=== PATIENT | female | born 1975 | race Caucasian/White ===

== ENCOUNTER 2017-08-29 07:25 | Outpatient (CLI) | payer OTHER ==
[~2017-08-29] VITALS: Ht 152.4 cm; Wt 76.2 kg
[~2017-08-29 07:25] MED LIST: CEFUROXIME500 MG PO; FLONASE16 GM NASAL; ZANTAC300 MG PO; ZYRTEC10 MG PO
== END 2017-08-29 07:45 | disposition home or self-care (01) ==
LOC: OFIC 805 07:25
DX: J37.0 Chronic laryngitis (principal); J31.0 Chronic rhinitis; R05 Cough

== ENCOUNTER 2017-10-11 08:08 | Outpatient (CLI) | payer OTHER | END 2017-10-11 16:27 | disposition home or self-care (01) | LOC: SONOGRAMA 08:08 | DX: E04.2 Nontoxic multinodular goiter (principal) ==

== ENCOUNTER 2017-11-14 07:54 | Outpatient (CLI) | payer OTHER ==
[~2017-11-14] VITALS: Ht 152.4 cm; Wt 76.2 kg
[2017-11-14] MEDS ORDERED: ZANTAC300 MG PO (09:17)
[2017-11-14] MEDS ORDERED: ZYRTEC10 MG PO (09:17)
[2017-11-14] MEDS ORDERED: FLONASE16 GM NASAL (09:17)
== END 2017-11-14 08:15 | disposition home or self-care (01) ==
LOC: OFIC 805 07:54
DX: J32.8 Other chronic sinusitis (principal); J37.0 Chronic laryngitis; J31.0 Chronic rhinitis; E04.2 Nontoxic multinodular goiter

== ENCOUNTER 2024-03-21 05:19 | Day surgery (SDC) | payer OTHER ==
[2024-03-21] MEDS ORDERED: CEFAZOLIN SODIUM 1,000 MG VIAL ONE (07:47)
[2024-03-21] MEDS ORDERED: POVIDONE-IODINE 118 ML BOTT TOP ONE (09:45)
[2024-03-21] MEDS ORDERED: MORPHINE SULFATE 2 MG/ML CARTRIDGE IV ONE (10:50)
== END 2024-03-21 16:50 | disposition home or self-care (01) ==
LOC: CIR.AMB 05:19
PROVIDERS: ATTEND Specialist
DX: N92.1 Excessive and frequent menstruation with irregular cycle (principal); J45.909 Unspecified asthma, uncomplicated; H52.209 Unspecified astigmatism, unspecified eye

== ENCOUNTER 2025-04-27 15:41 | Emergency (ER) | payer OTHER ==
[~2025-04-27] VITALS: Ht 170.2 cm; Wt 90.7 kg
[2025-04-27] MEDS ORDERED: DEXAMETHASONE SODIUM PHOSPHATE 4 MG/ML VIAL ONE (18:10)
[2025-04-27] MEDS ORDERED: ORPHENADRINE CITRATE 30 MG/ML AMPUL ONE (18:10)
[2025-04-27] MEDS ORDERED: KETOROLAC TROMETHAMINE 30 MG VIAL ONE (18:10)
[2025-04-27] MEDS ORDERED: DEXAMETHASONE SODIUM PHOSPHATE 4 MG/ML VIAL IM ONE (18:15)
[2025-04-27] MEDS ORDERED: ORPHENADRINE CITRATE 30 MG/ML AMPUL IM ONE (18:15)
[2025-04-27] MEDS ORDERED: KETOROLAC TROMETHAMINE 30 MG VIAL IM ONE (18:15)
== END 2025-04-27 18:46 | disposition home or self-care (01) ==
LOC: ER 15:41
DX: M54.2 Cervicalgia (principal); M54.12 Radiculopathy, cervical region; M62.830 Muscle spasm of back; M54.50 Low back pain, unspecified; Z88.2 Allergy status to sulfonamides